=== PATIENT | male | born 1955 | race Caucasian/White ===

== ENCOUNTER 2018-10-17 07:48 | Inpatient (IN) | payer OTHER ==
[2018-10-14 17:53] VITALS: BMI 24.4
[2018-10-17] VITALS (23 sets, daily range): BP systolic 90–140; BP diastolic 50–98; PULSE 80–104; RESP 10–30; Ht 167.6 cm; Wt 72.0 kg
[~2018-10-17] VITALS: Ht 167.6 cm; Wt 72.0 kg
[~2018-10-17 07:48] MED LIST: AMPICILLIN/SULB 3 GM/NS (PMX) 100 ML IVPB ONE; CIPR500T4 PO; CLIN150C17 PO; HYDR-3601 PO; INSU100I33 SC; INSU100V3 IJ; Insulin Glargine SC; SOD CHLORIDE 0.9% 1,000 ML IV SCH
[2018-10-17] MEDS ORDERED: MIDAZOLAM 1 MG/ML 2 ML INJ ONE (10:40)
[2018-10-17] MEDS ORDERED: CEFAZOLIN 1 GM INJ ONE (11:11)
[2018-10-17] MEDS ORDERED: ROPIVACAINE 0.5 % 30 ML VIAL ONE (11:11)
[2018-10-17] MEDS ORDERED: PROPOFOL 20 ML ONE (11:11)
[2018-10-17] MEDS ORDERED: ROCURONIUM 50 MG INJ ONE (11:11)
[2018-10-17] MEDS ORDERED: morphine SULFATE/PF (10 MG/10 ML) INJ ONE (11:11)
[2018-10-17] MEDS ORDERED: GLYCOPYRROLATE 0.4 MG INJ ONE (11:48)
[2018-10-17] MEDS ORDERED: HEPARIN 1000 UNITS/ML 10 ML INJ ONE (11:48)
[2018-10-17] MEDS ORDERED: HETASTARCH 6% NACL 500 ML ONE (11:49)
[2018-10-17] MEDS ORDERED: EPHEDrine 25 MG/5 ML SYG ONE (12:10)
[2018-10-17] MEDS ORDERED: PHENYLephrine (100 MCG/ML) 10ML SYG ONE (12:10)
[2018-10-17] MEDS ORDERED: FENTAnyl 2MCG/ML-ROPIV 0.2% 100 ML BAG EPI SCH (12:30)
[2018-10-17] MEDS ORDERED: hydrALAzine 20 MG INJ IV PRN ×2 (12:30→16:00)
[2018-10-17] MEDS ORDERED: NALBUPHINE HCL (10 MG/1 ML) INJ IV PRN (12:30)
[2018-10-17] MEDS ORDERED: HYDROmorphONE 0.5 MG/0.5 ML SYG IV PRN ×2 (12:30)
[2018-10-17] MEDS ORDERED: MEPERIDINE 25 MG INJ IV PRN (12:30)
[2018-10-17] MEDS ORDERED: METOCLOPRAMIDE 10 MG INJ IV PRN (12:30)
[2018-10-17] MEDS ORDERED: HYDROmorphONE 1 MG/5 ML IV SYRINGE IV PRN ×3 (12:30)
[2018-10-17] MEDS ORDERED: EPHEDrine 25 MG/5 ML SYG IV PRN (12:30)
[2018-10-17] MEDS ORDERED: TRIMETHOBENZAMIDE 100 MG/ML VIAL IM PRN (12:30)
[2018-10-17] MEDS ORDERED: ALBUMIN HUMAN 5% 250 ML IV PRN (12:30)
[2018-10-17] MEDS ORDERED: morphine 2 MG INJ IV PRN ×2 (12:30)
[2018-10-17] MEDS ORDERED: ONDANSETRON 4 MG INJ IV PRN ×2 (12:30)
[2018-10-17] MEDS ORDERED: LABETALOL HCL 20MG INJ IV PRN (12:30)
[2018-10-17] MEDS ORDERED: DIPHENHYDRAMINE 50 MG INJ IV PRN ×2 (12:30)
[2018-10-17] MEDS ORDERED: FENTAnyl 50 MCG/ML VIAL IV PRN ×3 (12:30)
[2018-10-17] MEDS ORDERED: NALOXONE (0.4 MG/ML) INJ IV PRN (12:30)
[2018-10-17] MEDS ORDERED: METOCLOPRAMIDE 10 MG INJ ONE (13:18)
[2018-10-17] MEDS ORDERED: SUGAMMADEX SODIUM 200 MG/2 ML VIAL IV ONE (13:18)
[2018-10-17] MEDS ORDERED: DEXAMETHASONE 4 MG/ML 5 ML INJ ONE (13:18)
[2018-10-17] MEDS ORDERED: ONDANSETRON 4 MG INJ ONE (13:18)
[2018-10-17] MEDS: D5W-0.45 NACL + KCL 20 MEQ 1,000 ML IV SCH ×2 (15:53→22:59)
[2018-10-17] MEDS ORDERED: DEXTROSE 50% 50 ML SYRINGE IV PRN ×2 (18:00)
[2018-10-17] MEDS ORDERED: GLUCOSE GEL 15 GRAM TUBE BUCCAL PRN (18:00)
[2018-10-17] MEDS ORDERED: GLUCOSE GEL 15 GRAM TUBE PO PRN ×2 (18:00)
[2018-10-17] MEDS ORDERED: GLUCAGON 1 MG INJ IM PRN (18:00)
[2018-10-17] MEDS: INSULIN ASPART [NOVOLOG] 3 ML PEN SC SCH ×2 (19:30→23:05)
[2018-10-17] MEDS: INSULIN GLARGINE [LANTus] (100 UNITS/ML) SYG SC SCH (23:06)
[2018-10-18 00:03] VITALS: BP 116/65; PULSE 110; RESP 20
[2018-10-18] MEDS: D5W-0.45 NACL + KCL 20 MEQ 1,000 ML IV SCH ×4 (02:57→19:11)
[2018-10-18 04:19] VITALS: BP 124/63; PULSE 97; RESP 18
[2018-10-18] MEDS: PANTOPRAZOLE 40 MG INJ IV SCH (05:49)
[2018-10-18] MEDS: INSULIN ASPART [NOVOLOG] 3 ML PEN SC SCH ×4 (05:59→23:41)
[2018-10-18 07:34] VITALS: BP 112/62; PULSE 92; RESP 19
[2018-10-18] MEDS: FENTAnyl 2MCG/ML-ROPIV 0.2% 100 ML BAG EPI SCH ×2 (11:10→20:12)
[2018-10-18 13:59] VITALS: BP 98/53; PULSE 78; RESP 19
[2018-10-18] MEDS ORDERED: HYDROmorphONE 0.5 MG/0.5 ML SYG IV STA (17:46)
[2018-10-18] MEDS ORDERED: morphine 2 MG INJ IV PRN ×2 (18:30)
[2018-10-18] MEDS ORDERED: NALOXONE (0.4 MG/ML) INJ IV PRN (18:30)
[2018-10-18] MEDS ORDERED: HYDROmorphONE 0.5 MG/0.5 ML SYG IV PRN (18:30)
[2018-10-18 19:52] VITALS: BP 168/78; PULSE 65; RESP 18
[2018-10-18] MEDS: HYDROmorphONE 0.5 MG/0.5 ML SYG IV PRN ×2 (20:03→23:51)
[2018-10-18] MEDS: INSULIN GLARGINE [LANTus] (100 UNITS/ML) SYG SC SCH (20:09)
[2018-10-19 00:05] VITALS: BP 154/70; PULSE 74; RESP 18
[2018-10-19] MEDS: D5W-0.45 NACL + KCL 20 MEQ 1,000 ML IV SCH ×4 (02:11→15:41)
[2018-10-19] MEDS: HYDROmorphONE 0.5 MG/0.5 ML SYG IV PRN ×2 (02:56→06:02)
[2018-10-19] MEDS: FENTAnyl 2MCG/ML-ROPIV 0.2% 100 ML BAG EPI SCH ×3 (03:02→17:44)
[2018-10-19] MEDS: PANTOPRAZOLE 40 MG INJ IV SCH (05:48)
[2018-10-19] MEDS: INSULIN ASPART [NOVOLOG] 3 ML PEN SC SCH ×3 (05:54→17:50)
[2018-10-19 08:23] VITALS: BP 118/78; PULSE 103; RESP 18
[2018-10-19 15:23] VITALS: BP 126/69; PULSE 102; RESP 17
[2018-10-19 19:25] VITALS: BP 122/71; PULSE 94; RESP 20
[2018-10-19] MEDS: INSULIN GLARGINE [LANTus] (100 UNITS/ML) SYG SC SCH (21:32)
[2018-10-20] MEDS: METOCLOPRAMIDE 10 MG INJ IV PRN (00:28)
[2018-10-20] MEDS: D5W-0.45 NACL + KCL 20 MEQ 1,000 ML IV SCH ×4 (00:30→19:54)
[2018-10-20 02:10] VITALS: BP 123/72; PULSE 81; RESP 20
[2018-10-20] MEDS: FENTAnyl 2MCG/ML-ROPIV 0.2% 100 ML BAG EPI SCH ×3 (03:09→17:46)
[2018-10-20] MEDS: PANTOPRAZOLE 40 MG INJ IV SCH ×2 (06:11→18:25)
[2018-10-20] MEDS: INSULIN ASPART [NOVOLOG] 3 ML PEN SC SCH ×4 (06:17→18:25)
[2018-10-20 07:08] VITALS: BP 142/75; PULSE 71; RESP 18
[2018-10-20] MEDS ORDERED: ACETAMINOPHEN 1000MG/100ML IV 100 ML IVPB PRN (13:00)
[2018-10-20 14:03] VITALS: BP 98/53; PULSE 67; RESP 16
[2018-10-20] MEDS: morphine 2 MG INJ IV PRN ×2 (18:26→19:54)
[2018-10-20] MEDS: INSULIN GLARGINE [LANTus] (100 UNITS/ML) SYG SC SCH (20:03)
[2018-10-20 20:22] VITALS: BP 105/53; PULSE 79; RESP 18
[2018-10-21 00:31] VITALS: BP 119/68; PULSE 84; RESP 19
[2018-10-21] MEDS: FENTAnyl 2MCG/ML-ROPIV 0.2% 100 ML BAG EPI SCH ×3 (01:20→15:58)
[2018-10-21] MEDS: D5W-0.45 NACL + KCL 20 MEQ 1,000 ML IV SCH ×3 (04:04→20:26)
[2018-10-21] MEDS: morphine 2 MG INJ IV PRN ×6 (04:06→22:51)
[2018-10-21] MEDS: PANTOPRAZOLE 40 MG INJ IV SCH ×2 (05:59→18:31)
[2018-10-21] MEDS: INSULIN ASPART [NOVOLOG] 3 ML PEN SC SCH ×4 (06:03→18:34)
[2018-10-21 07:38] VITALS: BP 121/62; PULSE 72; RESP 19
[2018-10-21] MEDS: ONDANSETRON 4 MG INJ IV PRN (09:52)
[2018-10-21 11:00] VITALS: BP 134/74; PULSE 66; RESP 18
[2018-10-21 15:00] VITALS: BP 122/68; PULSE 74; RESP 19
[2018-10-21] MEDS ORDERED: morphine SULFATE/PF (10 MG/10 ML) INJ ONE (17:56)
[2018-10-21] MEDS ORDERED: ROPIVACAINE 0.2% 20 ML VIAL ONE (17:56)
[2018-10-21] MEDS ORDERED: VANCOMYCIN IV PER PHARMACY XX SCH (18:30)
[2018-10-21 19:25] VITALS: BP 149/77; PULSE 83; RESP 18
[2018-10-21] MEDS ORDERED: VANCOMYCIN 1.5 GM/NS 250 ML 250 ML IVPB ONE (20:00)
[2018-10-21] MEDS: INSULIN GLARGINE [LANTus] (100 UNITS/ML) SYG SC SCH (20:40)
[2018-10-21] MEDS ORDERED: ACETAMINOPHEN 1000MG/100ML IV 100 ML IVPB PRN (21:00)
[2018-10-22] MEDS: PIPER-TAZO 3.375 GM IV (PMX) 100 ML IVPB SCH ×4 (00:10→17:35)
[2018-10-22] MEDS: morphine 2 MG INJ IV PRN ×6 (00:11→09:43)
[2018-10-22 00:12] VITALS: BP 133/72; PULSE 85; RESP 20
[2018-10-22] MEDS: INSULIN ASPART [NOVOLOG] 3 ML PEN SC SCH ×4 (00:19→17:36)
[2018-10-22 04:30] VITALS: BP 136/74; PULSE 79; RESP 17
[2018-10-22] MEDS: D5W-0.45 NACL + KCL 20 MEQ 1,000 ML IV SCH ×3 (04:42→19:17)
[2018-10-22] MEDS: PANTOPRAZOLE 40 MG INJ IV SCH ×2 (06:25→17:36)
[2018-10-22 07:34] VITALS: BP 131/67; PULSE 77; RESP 15
[2018-10-22] MEDS: VANCOMYCIN 1 GM 250 ML IVPB SCH ×2 (08:00→20:14)
[2018-10-22] MEDS: morphine 4 MG/ML VIAL IV PRN ×6 (12:06→22:07)
[2018-10-22] MEDS: METOCLOPRAMIDE 10 MG INJ IV PRN (12:12)
[2018-10-22 14:04] VITALS: BP 151/70; PULSE 65; RESP 15
[2018-10-22 20:01] VITALS: BP 125/65; PULSE 88; RESP 20
[2018-10-22] MEDS: INSULIN GLARGINE [LANTus] (100 UNITS/ML) SYG SC SCH (20:21)
[2018-10-23] MEDS: morphine 4 MG/ML VIAL IV PRN ×4 (00:08→12:35)
[2018-10-23] MEDS: PIPER-TAZO 3.375 GM IV (PMX) 100 ML IVPB SCH ×5 (00:08→23:47)
[2018-10-23] MEDS: INSULIN ASPART [NOVOLOG] 3 ML PEN SC SCH ×5 (00:14→23:51)
[2018-10-23 00:25] VITALS: BP 117/64; PULSE 102; RESP 19
[2018-10-23] MEDS: PANTOPRAZOLE 40 MG INJ IV SCH ×2 (05:31→17:53)
[2018-10-23] MEDS: D5W-0.45 NACL + KCL 20 MEQ 1,000 ML IV SCH ×4 (05:32→21:30)
[2018-10-23 07:24] VITALS: BP 118/67; PULSE 89; RESP 18
[2018-10-23] MEDS: VANCOMYCIN 1 GM 250 ML IVPB SCH (09:21)
[2018-10-23] MEDS: KETOROLAC 30 MG INJ IV SCH ×2 (13:49→20:10)
[2018-10-23 14:14] VITALS: BP 120/68; PULSE 82; RESP 17
[2018-10-23] MEDS: VANCOMYCIN 1.25 GM/NS 250 ML 250 ML IVPB SCH (18:28)
[2018-10-23 20:10] VITALS: BP 109/66; PULSE 80; RESP 18
[2018-10-23] MEDS: INSULIN GLARGINE [LANTus] (100 UNITS/ML) SYG SC SCH (20:13)
[2018-10-24] MEDS: KETOROLAC 30 MG INJ IV SCH ×4 (01:07→21:44)
[2018-10-24 02:15] VITALS: BP 114/57; PULSE 57; RESP 16
[2018-10-24] MEDS: PANTOPRAZOLE 40 MG INJ IV SCH ×2 (05:12→18:00)
[2018-10-24] MEDS: INSULIN ASPART [NOVOLOG] 3 ML PEN SC SCH ×3 (05:12→17:57)
[2018-10-24] MEDS: PIPER-TAZO 3.375 GM IV (PMX) 100 ML IVPB SCH ×3 (05:12→17:57)
[2018-10-24] MEDS: D5W-0.45 NACL + KCL 20 MEQ 1,000 ML IV SCH ×3 (05:24→21:55)
[2018-10-24] MEDS: VANCOMYCIN 1.25 GM/NS 250 ML 250 ML IVPB SCH (06:21)
[2018-10-24 08:01] VITALS: BP 111/61; PULSE 53; RESP 18
[2018-10-24 14:20] VITALS: BP 114/63; PULSE 53; RESP 16
[2018-10-24] MEDS ORDERED: IOHEXOL 300MG/ML 30 ML BTL ONE (14:28)
[2018-10-24] MEDS ORDERED: IOHEXOL 300MG/ML 150 ML BTL ONE (15:24)
[2018-10-24] MEDS ORDERED: VANCOMYCIN 1.25 GM/NS 250 ML 250 ML IVPB SCH (18:00)
[2018-10-24 20:20] VITALS: BP 138/65; PULSE 54; RESP 16
[2018-10-24] MEDS: INSULIN GLARGINE [LANTus] (100 UNITS/ML) SYG SC SCH (21:51)
[2018-10-25] MEDS: INSULIN ASPART [NOVOLOG] 3 ML PEN SC SCH
[2018-10-25] MEDS: KETOROLAC 30 MG INJ IV SCH ×4 (01:30→19:05)
[2018-10-25] MEDS: PIPER-TAZO 3.375 GM IV (PMX) 100 ML IVPB SCH ×5 (01:36→23:08)
[2018-10-25 02:49] VITALS: BP 124/64; PULSE 59; RESP 17
[2018-10-25] MEDS: PANTOPRAZOLE 40 MG INJ IV SCH ×2 (04:39→18:06)
[2018-10-25] MEDS: D5W-0.45 NACL + KCL 20 MEQ 1,000 ML IV SCH ×3 (05:41→23:08)
[2018-10-25] MEDS ORDERED: INSULIN ASPART [NOVOLOG] 3 ML PEN SC SCH (07:20)
[2018-10-25 07:45] VITALS: BP 103/56; PULSE 56; RESP 16
[2018-10-25] MEDS: Insulin NOVOLOG SS MILD Algorithm (SS with meals and bedtime) SC SCH ×4 (08:43→20:04)
[2018-10-25] MEDS ORDERED: DIPHENHYDRAMINE 50 MG INJ IV PRN (14:30)
[2018-10-25 14:58] VITALS: BP 120/58; PULSE 51; RESP 20
[2018-10-25] MEDS: LORATADINE 10 MG TAB PO SCH (15:12)
[2018-10-25] MEDS: INSULIN GLARGINE [LANTus] (100 UNITS/ML) SYG SC SCH (20:04)
[2018-10-25 20:15] VITALS: BP 114/62; PULSE 58; RESP 18
[2018-10-26] MEDS: morphine 4 MG/ML VIAL IV PRN (00:50)
[2018-10-26] MEDS: KETOROLAC 30 MG INJ IV SCH ×2 (01:27→07:39)
[2018-10-26 01:33] VITALS: BP 141/67; PULSE 50; RESP 18
[2018-10-26] MEDS: PIPER-TAZO 3.375 GM IV (PMX) 100 ML IVPB SCH ×4 (05:24→23:44)
[2018-10-26] MEDS: PANTOPRAZOLE 40 MG INJ IV SCH ×2 (05:24→17:47)
[2018-10-26] MEDS: D5W-0.45 NACL + KCL 20 MEQ 1,000 ML IV SCH (05:25)
[2018-10-26 08:05] VITALS: BP 135/63; PULSE 52; RESP 19
[2018-10-26] MEDS: Insulin NOVOLOG SS MILD Algorithm (SS with meals and bedtime) SC SCH ×4 (08:35→21:00)
[2018-10-26] MEDS: LORATADINE 10 MG TAB PO SCH (08:39)
[2018-10-26 14:02] VITALS: BP 140/68; PULSE 71; RESP 18
[2018-10-26] MEDS ORDERED: KETOROLAC 30 MG INJ IV STA (14:12)
[2018-10-26] MEDS: HYDROCODONE/APAP (5/325) TAB PO PRN ×2 (19:39→23:45)
[2018-10-26 19:48] VITALS: BP 148/70; PULSE 50; RESP 18
[2018-10-26] MEDS: INSULIN GLARGINE [LANTus] (100 UNITS/ML) SYG SC SCH (20:00)
[2018-10-26] MEDS ORDERED: DEXTROSE 5%-0.45% NACL 1,000 ML IV SCH (21:00)
[2018-10-27] VITALS (14 sets, daily range): BP systolic 123–159; BP diastolic 58–75; PULSE 50–64; RESP 15–20
[2018-10-27] MEDS: PIPER-TAZO 3.375 GM IV (PMX) 100 ML IVPB SCH ×4 (05:55→23:44)
[2018-10-27] MEDS: PANTOPRAZOLE 40 MG INJ IV SCH ×2 (05:55→18:18)
[2018-10-27] MEDS: morphine 4 MG/ML VIAL IV PRN ×2 (07:33→12:04)
[2018-10-27] MEDS: Insulin NOVOLOG SS MILD Algorithm (SS with meals and bedtime) SC SCH ×4 (08:29→21:00)
[2018-10-27] MEDS: LORATADINE 10 MG TAB PO SCH (09:00)
[2018-10-27] MEDS: POTASSIUM CHLORIDE 100 ML IVPB SCH ×2 (12:47→15:22)
[2018-10-27] MEDS ORDERED: MIDAZOLAM 1 MG/ML 2 ML INJ ONE (15:46)
[2018-10-27] MEDS ORDERED: PROPOFOL 40 ML ONE (15:46)
[2018-10-27] MEDS ORDERED: PROPOFOL 200 MG INJ ONE (15:46)
[2018-10-27] MEDS ORDERED: EPHEDrine 25 MG/5 ML SYG IV PRN (16:30)
[2018-10-27] MEDS ORDERED: DIPHENHYDRAMINE 50 MG INJ IV PRN (16:30)
[2018-10-27] MEDS ORDERED: FENTAnyl 50 MCG/ML VIAL IV PRN (16:30)
[2018-10-27] MEDS ORDERED: LABETALOL HCL 20MG INJ IV PRN (16:30)
[2018-10-27] MEDS ORDERED: HYDROmorphONE 1 MG/5 ML IV SYRINGE IV PRN ×2 (16:30)
[2018-10-27] MEDS ORDERED: MEPERIDINE 25 MG INJ IV PRN (16:30)
[2018-10-27] MEDS ORDERED: hydrALAzine 20 MG INJ IV PRN (16:30)
[2018-10-27] MEDS ORDERED: MIDAZOLAM 1 MG/ML 2 ML INJ IV PRN (16:30)
[2018-10-27] MEDS ORDERED: OXYCODONE/ACETAMINOPHEN (5/325) TAB PO PRN (16:30)
[2018-10-27] MEDS ORDERED: ONDANSETRON 4 MG INJ IV PRN (16:30)
[2018-10-27] MEDS: D5-NS + KCL 20 MEQ 1,000 ML IV SCH (21:38)
[2018-10-28 01:27] VITALS: BP 137/60; PULSE 55; RESP 18
[2018-10-28] MEDS: PIPER-TAZO 3.375 GM IV (PMX) 100 ML IVPB SCH ×3 (05:23→17:42)
[2018-10-28] MEDS: PANTOPRAZOLE 40 MG INJ IV SCH ×2 (05:29→17:42)
[2018-10-28] MEDS: D5-NS + KCL 20 MEQ 1,000 ML IV SCH ×2 (06:18→14:26)
[2018-10-28 07:10] VITALS: BP 127/61; PULSE 50; RESP 18
[2018-10-28] MEDS: Insulin NOVOLOG SS MILD Algorithm (SS with meals and bedtime) SC SCH ×4 (08:46→21:00)
[2018-10-28] MEDS: HYDROCODONE/APAP (5/325) TAB PO PRN ×2 (08:47→16:55)
[2018-10-28] MEDS: LORATADINE 10 MG TAB PO SCH (08:47)
[2018-10-28 15:37] VITALS: BP 162/70; PULSE 48; RESP 18
[2018-10-28 19:20] VITALS: BP 150/69; PULSE 58; RESP 20
[2018-10-28] MEDS: INSULIN GLARGINE [LANTus] (100 UNITS/ML) SYG SC SCH (21:34)
[2018-10-29] MEDS: HYDROCODONE/APAP (5/325) TAB PO PRN ×2 (00:26→09:09)
[2018-10-29] MEDS: PIPER-TAZO 3.375 GM IV (PMX) 100 ML IVPB SCH ×2 (00:28→05:14)
[2018-10-29 02:45] VITALS: BP 132/60; PULSE 54; RESP 20
[2018-10-29] MEDS: PANTOPRAZOLE 40 MG INJ IV SCH ×2 (05:14→18:02)
[2018-10-29] MEDS: D5-NS + KCL 20 MEQ 1,000 ML IV SCH ×2 (05:15→10:54)
[2018-10-29] MEDS: Insulin NOVOLOG SS MILD Algorithm (SS with meals and bedtime) SC SCH ×4 (07:20→21:00)
[2018-10-29 07:21] VITALS: BP 145/70; PULSE 50; RESP 15
[2018-10-29] MEDS: LORATADINE 10 MG TAB PO SCH (09:05)
[2018-10-29 14:00] VITALS: BP 157/70; PULSE 55; RESP 15
[2018-10-29] MEDS: CIPROFLOXACIN 500 MG TAB PO SCH (18:02)
[2018-10-29 19:15] VITALS: BP 149/80; PULSE 59; RESP 18
[2018-10-29] MEDS: INSULIN GLARGINE [LANTus] (100 UNITS/ML) SYG SC SCH (20:38)
[2018-10-30] MEDS: HYDROCODONE/APAP (5/325) TAB PO PRN ×3 (00:16→20:33)
[2018-10-30] MEDS: D5-NS + KCL 20 MEQ 1,000 ML IV SCH (00:16)
[2018-10-30 01:29] VITALS: BP 157/77; PULSE 58; RESP 18
[2018-10-30] MEDS: PANTOPRAZOLE 40 MG INJ IV SCH ×2 (05:02→18:16)
[2018-10-30] MEDS: CIPROFLOXACIN 500 MG TAB PO SCH ×2 (05:02→18:16)
[2018-10-30 07:16] VITALS: BP 144/66; PULSE 88; RESP 17
[2018-10-30] MEDS: Insulin NOVOLOG SS MILD Algorithm (SS with meals and bedtime) SC SCH ×4 (08:40→20:34)
[2018-10-30] MEDS: LORATADINE 10 MG TAB PO SCH (09:32)
[2018-10-30 14:07] VITALS: BP 142/72; PULSE 53; RESP 17
[2018-10-30] MEDS: ONDANSETRON 4 MG INJ IV PRN (18:16)
[2018-10-30 18:30] VITALS: BP 136/70; PULSE 60; RESP 18
[2018-10-30] MEDS: INSULIN GLARGINE [LANTus] (100 UNITS/ML) SYG SC SCH (20:34)
[2018-10-30] MEDS: DAKINS 0.0125%(1/40) 473 ML SOLUTION TP SCH (21:18)
[2018-10-31 02:05] VITALS: BP 118/58; PULSE 52; RESP 18
[2018-10-31] MEDS: CIPROFLOXACIN 500 MG TAB PO SCH ×2 (05:10→18:56)
[2018-10-31] MEDS: PANTOPRAZOLE 40 MG INJ IV SCH ×2 (05:10→18:00)
[2018-10-31 07:06] VITALS: BP 96/51; PULSE 53; RESP 18
[2018-10-31] MEDS: Insulin NOVOLOG SS MILD Algorithm (SS with meals and bedtime) SC SCH ×4 (08:30→20:26)
[2018-10-31] MEDS: LORATADINE 10 MG TAB PO SCH (09:01)
[2018-10-31] MEDS: DAKINS 0.0125%(1/40) 473 ML SOLUTION TP SCH ×2 (09:01→20:28)
[2018-10-31] MEDS: HYDROCODONE/APAP (5/325) TAB PO PRN ×2 (09:03→22:23)
[2018-10-31] MEDS: CLINDAMYCIN 150 MG CAP PO SCH ×2 (14:04→20:27)
[2018-10-31 14:35] VITALS: BP 101/75; PULSE 60; RESP 18
[2018-10-31 17:32] VITALS: BP 122/64; PULSE 51; RESP 17
[2018-10-31 19:59] VITALS: BP 154/84; PULSE 53; RESP 18
[2018-10-31] MEDS: INSULIN GLARGINE [LANTus] (100 UNITS/ML) SYG SC SCH (20:30)
[2018-11-01 02:00] VITALS: BP 111/67; PULSE 52; RESP 19
[2018-11-01] MEDS: PANTOPRAZOLE 40 MG INJ IV SCH (06:00)
[2018-11-01] MEDS: CLINDAMYCIN 150 MG CAP PO SCH ×2 (06:20→13:43)
[2018-11-01] MEDS: CIPROFLOXACIN 500 MG TAB PO SCH (06:20)
[2018-11-01 07:17] VITALS: BP 134/71; PULSE 68; RESP 19
[2018-11-01] MEDS: Insulin NOVOLOG SS MILD Algorithm (SS with meals and bedtime) SC SCH ×2 (08:34→12:48)
[2018-11-01] MEDS: DAKINS 0.0125%(1/40) 473 ML SOLUTION TP SCH (08:35)
[2018-11-01] MEDS: LORATADINE 10 MG TAB PO SCH (08:35)
[2018-11-01] MEDS: HYDROCODONE/APAP (5/325) TAB PO PRN (12:45)
== END 2018-11-01 17:00 | disposition home health service (06) | DRG 327 ==
LOC: REC 07:48 → MS1 15:17 → EDSTATUS 10-24 09:00
PROVIDERS: ADMIT Surgery Surgical Oncology; ATTEND Surgery Surgical Oncology
PROC: 0DB60ZZ Excision of Stomach, Open Approach (ICD-10-PCS; 2018-10-17)
PROC: 07TD0ZZ Resection of Aortic Lymphatic, Open Approach (ICD-10-PCS; 2018-10-17)
PROC: 0DP60UZ Removal of Feeding Device from Stomach, Open Approach (ICD-10-PCS; principal; 2018-10-17 10:00)
PROC: 0DB68ZX Excision of Stomach, Via Natural or Artificial Opening Endoscopic, Diagnostic (ICD-10-PCS; 2018-10-27)
DX: C16.1 Malignant neoplasm of fundus of stomach (principal); T81.31XA Disruption of external operation (surgical) wound, not elsewhere classified, initial encounter; T81.41XA Infection following a procedure, superficial incisional surgical site, initial encounter; B96.5 Pseudomonas (aeruginosa) (mallei) (pseudomallei) as the cause of diseases classified elsewhere; B96.89 Other specified bacterial agents as the cause of diseases classified elsewhere; E87.6 Hypokalemia; E11.9 Type 2 diabetes mellitus without complications; E78.5 Hyperlipidemia, unspecified; G89.18 Other acute postprocedural pain; I10 Essential (primary) hypertension; N40.0 Benign prostatic hyperplasia without lower urinary tract symptoms; Y83.8 Other surgical procedures as the cause of abnormal reaction of the patient, or of later complication, without mention of misadventure at the time of the procedure; Z93.1 Gastrostomy status; Z92.21 Personal history of antineoplastic chemotherapy; Z92.3 Personal history of irradiation; Z79.4 Long term (current) use of insulin
CPT/HCPCS: 71045; 74018; 74240; 80048; 80053; 80202; 82565; 82962; 84520; 85025; 85610; 85730; 87070; 87075; 87086; 88305; 88307; 88312; 88331; 88342; 93005; C9113; J0295; J0690; J1100; J1170; J1200; J1644; J1815; J1885; J2250; J2270; J2274; J2370; J2405; J2543; J2765; J2795; J3010; J3370; J3480; J7030; J7042; Q9967